=== PATIENT | female | born 1975 | race Caucasian/White ===

== ENCOUNTER 2017-07-21 19:57 | Emergency (ER) | payer BC ==
[2017-07-21 20:20] VITALS: BP 209/115
--- NOTE | 2017-07-21 20:32 | EDM.PDOC ---
ED HPI GENERAL MEDICAL PROBLEM - General Chief Complaint: Lower Extremity Injury/Pain Stated Complaint: POSSIBLE BLOOD CLOT LT LEG Time Seen by Provider: 07/21/17 20:27 Source of Information: Reports: Patient - History of Present Illness INITIAL COMMENTS - FREE TEXT/NARRATIVE: HISTORY AND PHYSICAL: History of present illness: [ Patient presents with small focus of pain on the plantar surface of her left foot, centrally over the plantar sheath do appreciate a small nodular lesion that is hard approximately the size of a BB that is tender, it may be a plantar wart starting to grow patient has not had pain or symptoms like this in the past there is no symptoms with palpation of the plantar sheath such as plantar fasciitis however the patient has had an increase in activity beginning a new exercise regimen. There is no calf tenderness or evidence of DVT in the history as she has been quite active has no calf tenderness no redness warmth or swelling.. Small lesion on the plantar surface of her foot does nonmobile there is no open lesion to suggest foreign body it appears as if she may be developing a plantar's wart No fever nausea vomiting chills sweats no chest pain shortness breath headache dizziness palpitation no bowel or urine symptoms has been no injury or trauma Patient is quite nervous about the possibility orthoptic a blood clot may exist hence her blood pressure is quite elevated at current ] Review of systems: As per history of present illness and below otherwise all systems reviewed and negative. Past medical history: As per history of present illness and as reviewed below otherwise noncontributory. Surgical history: As per history of present illness and as reviewed below otherwise noncontributory. Social history: No reported history of drug or alcohol abuse. Family history: As per history of present illness and as reviewed below otherwise noncontributory. Physical exam: HEENT: Atraumatic, normocephalic, pupils reactive, negative for conjunctival pallor or scleral icterus, mucous membranes moist, throat clear, neck supple, nontender, trachea midline. Lungs: Clear to auscultation, breath sounds equal bilaterally, chest nontender. Heart: S1S2, regular, negative for clicks, rubs, or JVD. Abdomen: Soft, nondistended, nontender. Negative for masses or hepatosplenomegaly. Negative for costovertebral tenderness. Pelvis: Stable nontender. Genitourinary: Deferred. Rectal: Deferred. Extremities: Atraumatic, negative for cords or calf pain. Neurovascular unremarkable. Neuro: Awake, alert, oriented. Cranial nerves II through XII unremarkable. Cerebellum unremarkable. Motor and sensory unremarkable throughout. Exam nonfocal. Left foot as per history of present illness Diagnostics: [Clinical ] Therapeutics: [Rest ice ibuprofen Shoe insert is discussed] Impression: [Left foot pain Possible early development of a plantar's wart] Definitive disposition and diagnosis as appropriate pending reevaluation and review of above. left foot Pain Score (Numeric/FACES): 7 - Related Data Allergies Allergy/AdvReac Type Severity Reaction Status Date / Time No Known Allergies Allergy Verified 07/21/17 20:21 Home Meds: Home Meds Carvedilol [Coreg] 3.125 mg PO BID 07/18/15 [History] Cetirizine [ZyrTEC] 10 mg PO DAILY 07/18/15 [History] Levothyroxine Sodium [Synthroid] 200 mcg PO DAILY 07/18/15 [History] Losartan [Cozaar] 25 mg PO DAILY 07/18/15 [History] Meloxicam [Mobic] 15 mg PO DAILY 07/18/15 [History] Montelukast [Singulair] 10 mg PO ONETIME 07/18/15 [History] Pravastatin Sodium [Pravastatin (Pravachol)] 40 mg PO DAILY 07/18/15 [History] SUMAtriptan [Imitrex] 50 mg PO ASDIRECTED 07/18/15 [History] buPROPion HCl [Wellbutrin Xl] 300 mg PO DAILY 07/18/15 [History] Norethindrone [Aygestin] 15 mg PO DAILY 07/21/17 [History] Past Medical History HEENT History: Reports: Impaired Vision Cardiovascular History: Reports: High Cholesterol, Hypertension, Other (See Below) Other Cardiovascular History: palpitations Respiratory History: Reports: None Gastrointestinal History: Reports: None Genitourinary History: Reports: None [employer] History: Reports: Musculoskeletal History: Reports: None Neurological History: Reports: Migraines (Classic with visual auras of scintillating lights and visual spots.) Psychiatric History: Reports: None Endocrine/Metabolic History: Reports: Hyperthyroidism Hematologic History: Reports: None Immunologic History: Reports: None Oncologic (Cancer) History: Reports: None Dermatologic History: Reports: None - Infectious Disease History Infectious Disease History: Reports: Chicken Pox - Past Surgical History GI Surgical History: Reports: Appendectomy Social & Family History - Family History Family Medical History: Noncontributory - Tobacco Use Smoking Status *Q: Never Smoker Second Hand Smoke Exposure: No - Alcohol Use Days Per Week of Alcohol Use: 7 Number of Drinks Per Day: 2 Total Drinks Per Week: 14 - Recreational Drug Use Recreational Drug Use: No - Living Situation & Occupation Living situation: Reports: Occupation: Employed Review of Systems - Review of Systems Review Of Systems: ROS reveals no pertinent complaints other than HPI. ED EXAM, GENERAL - Physical Exam Exam: See Below Course - Vital Signs Last Recorded V/S: Last Vital Signs Temp 98 F 07/21/17 19:57 Pulse 78 07/21/17 19:57 Resp 18 07/21/17 19:57 BP 209/115 H 07/21/17 19:57 Pulse Ox 100 07/21/17 19:57 Departure - Departure Time of Disposition: 20:31 Disposition: Home, Self-Care 01 Condition: Good Clinical Impression: Left foot pain - Discharge Information Referrals: PCP,None [Primary Care Provider] - Additional Instructions: ER referral for podiatry evaluation and treatment Return if symptoms persist or worsen Shoe insert as discussed Follow-up with primary care as needed [facility] - Podiatry [address] [place] [address] The following information is given to patients seen in the emergency department who are being discharged to home. This information is to outline your options for follow-up care. We provide all patients seen in our emergency department with a follow-up referral. The need for follow-up, as well as the timing and circumstances, are variable depending upon the specifics of your emergency department visit. If you don't have a primary care physician on staff, we will provide you with a referral. We always advise you to contact your personal physician following an emergency department visit to inform them of the circumstance of the visit and for follow-up with them and/or the need for any referrals to a consulting specialist. The emergency department will also refer you to a specialist when appropriate. This referral assures that you have the opportunity for follow-up care with a specialist. All of these measure are taken in an effort to provide you with optimal care, which includes your follow-up. Under all circumstances we always encourage you to contact your private physician who remains a resource for coordinating your care. When calling for follow-up care, please make the office aware that this follow-up is from your recent emergency room visit. If for any reason you are refused follow-up, please contact the [facility] emergency department at and asked to speak to the emergency department charge nurse.
== END 2017-07-21 20:42 | disposition home or self-care (01) ==
LOC: MW.ED 19:57
DX: M79.672 Pain in left foot (principal); E78.00 Pure hypercholesterolemia, unspecified; I10 Essential (primary) hypertension; Z79.899 Other long term (current) drug therapy
CPT/HCPCS: 99282; 99283